=== PATIENT | male | born 1970 | race Caucasian/White ===

== ENCOUNTER 2020-11-28 12:05 | Emergency (ER) | payer OTHER ==
[~2020-11-28] VITALS: Ht 167.6 cm; Wt 66.7 kg
[2020-11-28] MEDS ORDERED: TESS100C PO (15:57)
[2020-11-28] MEDS ORDERED: VENTAER INH (15:57)
[2020-11-28 16:07] VITALS: BP 122/58
== END 2020-11-28 16:05 | disposition home or self-care (01) ==
LOC: M ED 12:05
DX: J20.9 Acute bronchitis, unspecified (principal)
CPT/HCPCS: 99283; U0003